=== PATIENT | female | born 1945 | race Two or more races ===

== ENCOUNTER 2017-05-12 08:08 | Outpatient (CLI) | payer OTHER | END 2017-05-12 08:27 | disposition home or self-care (01) | LOC: LAB 08:08 | DX: I10 Essential (primary) hypertension (principal); E11.9 Type 2 diabetes mellitus without complications; E03.8 Other specified hypothyroidism; E78.2 Mixed hyperlipidemia ==

== ENCOUNTER → 2017-08-17 | Outpatient (CLI) | payer OTHER | END | disposition home or self-care (01) | LOC: RAD 15:26 | DX: M25.512 Pain in left shoulder (principal) ==

== ENCOUNTER 2018-09-24 16:53 | Outpatient (CLI) | payer OTHER | END 2018-09-24 16:55 | disposition home or self-care (01) | LOC: LAB | DX: E03.8 Other specified hypothyroidism (principal); I10 Essential (primary) hypertension; E78.2 Mixed hyperlipidemia; Z12.11 Encounter for screening for malignant neoplasm of colon; M81.0 Age-related osteoporosis without current pathological fracture; E11.9 Type 2 diabetes mellitus without complications ==

== ENCOUNTER → 2018-09-24 | Outpatient (CLI) | payer OTHER | END | disposition home or self-care (01) | LOC: MRI 09:15 → RAD 09:15 | DX: M46.47 Discitis, unspecified, lumbosacral region (principal); M19.90 Unspecified osteoarthritis, unspecified site | CPT/HCPCS: 72141 ==

== ENCOUNTER 2018-11-07 14:21 | Outpatient (CLI) | payer OTHER | END 2018-11-07 14:23 | disposition home or self-care (01) | LOC: LAB 14:21 | DX: G56.01 Carpal tunnel syndrome, right upper limb (principal); Z01.812 Encounter for preprocedural laboratory examination ==

== ENCOUNTER → 2018-11-08 15:06 | Outpatient (CLI) | payer OTHER | END | disposition home or self-care (01) | LOC: EKG 15:06 | DX: I10 Essential (primary) hypertension (principal) ==

== ENCOUNTER 2019-05-16 09:31 | Outpatient (CLI) | payer OTHER | END 2019-05-16 09:38 | disposition home or self-care (01) | LOC: NUCLEAR 09:31 | DX: I10 Essential (primary) hypertension (principal); J44.9 Chronic obstructive pulmonary disease, unspecified ==

== ENCOUNTER 2019-05-16 10:57 | Outpatient (CLI) | payer OTHER | END 2019-05-16 11:12 | disposition home or self-care (01) | LOC: LAB 10:57 | DX: E11.9 Type 2 diabetes mellitus without complications (principal); E03.8 Other specified hypothyroidism; E78.2 Mixed hyperlipidemia; I10 Essential (primary) hypertension ==

== ENCOUNTER 2019-05-17 09:46 | Outpatient (CLI) | payer OTHER | END 2019-05-17 09:49 | disposition home or self-care (01) | LOC: RX STUDY 09:46 | DX: R13.19 Other dysphagia (principal) ==

== ENCOUNTER → 2019-07-24 | Outpatient (CLI) | payer OTHER | END | disposition home or self-care (01) | LOC: RAD 10:15 | DX: M75.41 Impingement syndrome of right shoulder (principal) ==

== ENCOUNTER → 2019-08-28 14:27 | Outpatient (CLI) | payer OTHER | END | disposition home or self-care (01) | LOC: LAB 08-26 14:07 | PROVIDERS: ATTEND Internal Medicine Hematology & Oncology | DX: D68.61 Antiphospholipid syndrome (principal); D68.69 Other thrombophilia; E72.12 Methylenetetrahydrofolate reductase deficiency; Z86.711 Personal history of pulmonary embolism; Z79.01 Long term (current) use of anticoagulants ==

== ENCOUNTER 2020-04-10 09:18 | Outpatient (CLI) | payer OTHER | END 2020-04-10 09:27 | disposition home or self-care (01) | LOC: LAB 09:18 | PROVIDERS: ATTEND Internal Medicine Hematology & Oncology | DX: E03.8 Other specified hypothyroidism (principal); E06.3 Autoimmune thyroiditis; I10 Essential (primary) hypertension ==

== ENCOUNTER 2020-04-23 07:39 | Outpatient (CLI) | payer OTHER | END 2020-04-23 07:46 | disposition home or self-care (01) | LOC: TOM 07:39 | PROVIDERS: ATTEND Internal Medicine Hematology & Oncology | DX: R06.02 Shortness of breath (principal); R06.09 Other forms of dyspnea; Z86.711 Personal history of pulmonary embolism | CPT/HCPCS: 71260; Q9965 ==

== ENCOUNTER 2020-05-19 09:05 | Outpatient (CLI) | payer OTHER | END 2020-05-19 09:10 | disposition home or self-care (01) | LOC: LAB 09:05 | PROVIDERS: ATTEND Internal Medicine Hematology & Oncology | DX: I20.0 Unstable angina (principal); I50.20 Unspecified systolic (congestive) heart failure ==

== ENCOUNTER 2020-05-19 09:42 | Outpatient (CLI) | payer OTHER | END 2020-05-19 10:00 | disposition home or self-care (01) | LOC: NUCLEAR 09:42 | PROVIDERS: ATTEND Internal Medicine Hematology & Oncology | DX: I20.0 Unstable angina (principal); I50.20 Unspecified systolic (congestive) heart failure; Z86.711 Personal history of pulmonary embolism ==

== ENCOUNTER 2020-10-30 08:25 | Outpatient (CLI) | payer OTHER | END 2020-10-30 08:31 | disposition home or self-care (01) | LOC: LAB 08:25 | PROVIDERS: ATTEND Internal Medicine Cardiovascular Disease | DX: I10 Essential (primary) hypertension (principal); E11.9 Type 2 diabetes mellitus without complications; E03.8 Other specified hypothyroidism; E78.2 Mixed hyperlipidemia; Z12.11 Encounter for screening for malignant neoplasm of colon; E55.9 Vitamin D deficiency, unspecified ==

== ENCOUNTER 2020-11-11 08:54 | Outpatient (CLI) | payer OTHER | END 2020-11-11 08:56 | disposition home or self-care (01) | LOC: NUCLEAR 08:54 | PROVIDERS: ATTEND Internal Medicine Cardiovascular Disease | DX: M81.0 Age-related osteoporosis without current pathological fracture (principal) ==

== ENCOUNTER 2020-12-01 08:00 | Outpatient (CLI) | payer OTHER | END 2020-12-01 08:30 | disposition home or self-care (01) | LOC: PPH VACUNA 08:00 | PROVIDERS: ATTEND Emergency Medicine Pediatric Emergency Medicine | DX: Z23 Encounter for immunization (principal) ==

== ENCOUNTER → 2020-12-01 | Outpatient (CLI) | payer OTHER | END | disposition home or self-care (01) | LOC: LAB 10:56 | PROVIDERS: ATTEND Internal Medicine Hematology & Oncology | DX: D64.89 Other specified anemias (principal); E72.12 Methylenetetrahydrofolate reductase deficiency; I79.8 Other disorders of arteries, arterioles and capillaries in diseases classified elsewhere ==

== ENCOUNTER 2021-11-15 08:12 | Emergency (ER) | payer OTHER ==
[~2021-11-15] VITALS: Ht 152.4 cm; Wt 86.6 kg
[2021-11-15] MEDS ORDERED: VAZALORE81 MG PO (08:28)
== END 2021-11-15 16:29 | disposition home or self-care (01) ==
LOC: ER 08:12
DX: N39.0 Urinary tract infection, site not specified (principal)